=== PATIENT | male | born 2000 | race Caucasian/White ===

== ENCOUNTER 2022-11-04 08:00 | Outpatient (CLI) | payer MEDICAID ==
[2022-11-04 12:46] LABS: BASOPHILS # (AUTO) 0.1 10^3/uL (0.0-0.1); BASOPHILS % (AUTO) 0.6 %; EOSINOPHILS # (AUTO) 0.3 10^3/uL (0.0-0.7); EOSINOPHILS % (AUTO) 3.4 %; HCT - HEMATOCRIT 50.8 % (42.0-52.0); HGB - HEMOGLOBIN 17.3 g/dL (14.0-18.0); LYMPHOCYTES % (AUTO) 23.3 %; MEAN CORPUSCULAR HEMOGLOBIN 28.8 pg (27.0-31.0); MEAN CORPUSCULAR HGB CONC 34.1 g/dL (32.0-36.0); MEAN CORPUSCULAR VOLUME 84.5 fL (80.0-94.0); MEAN PLATELET VOLUME 10.4 fL (7.4-11.4); MONOCYTES # (AUTO) 0.5 10^3/uL (0.0-1.0); MONOCYTES % (AUTO) 5.7 %; NEUTROPHILS # (AUTO) 5.8 10^3/uL (1.5-6.6); NEUTROPHILS % (AUTO) 66.9 %; PLT - PLATELET COUNT 283 10^3/uL (130-450); RED BLOOD COUNT 6.01 10^6/uL (4.70-6.10); RED CELL DISTRIBUTION WIDTH 11.9 % (12.0-15.0); WHITE BLOOD COUNT 8.6 x10^3/uL (4.8-10.8)
[2022-11-04 13:03] LABS: ALBUMIN/GLOBULIN RATIO 1.8 (1.0-2.2); BILIRUBIN,TOTAL 0.8 mg/dL (0.2-1.0); CALCIUM 10.3 mg/dL (8.5-10.3); POTASSIUM 3.5 mmol/L (3.5-5.0); TOTAL PROTEIN 7.8 g/dL (6.7-8.2)
== END 2022-11-04 23:59 | disposition home or self-care (01) ==
LOC: LAB.N 08:00
PROVIDERS: ATTEND Physician Assistant Medical
DX: R53.83 Other fatigue (principal); Z20.822 Contact with and (suspected) exposure to COVID-19
CPT/HCPCS: 36415; 80050

== ENCOUNTER 2022-12-18 12:40 | Emergency (ER) | payer MEDICAID ==
[2022-12-18 12:52] VITALS: BP 143/68
[2022-12-18 13:26] LABS: BASOPHILS # (AUTO) 0.1 10^3/uL (0.0-0.1); BASOPHILS % (AUTO) 0.7 %; EOSINOPHILS # (AUTO) 0.2 10^3/uL (0.0-0.7); HCT - HEMATOCRIT 45.9 % (42.0-52.0); HGB - HEMOGLOBIN 15.6 g/dL (14.0-18.0); LYMPHOCYTES # (AUTO) 2.5 10^3/uL (1.5-3.5); MEAN CORPUSCULAR HEMOGLOBIN 28.9 pg (27.0-31.0); MEAN PLATELET VOLUME 9.6 fL (7.4-11.4); MONOCYTES # (AUTO) 0.5 10^3/uL (0.0-1.0); MONOCYTES % (AUTO) 7.2 %; NEUTROPHILS # (AUTO) 3.7 10^3/uL (1.5-6.6); PLT - PLATELET COUNT 250 10^3/uL (130-450); WHITE BLOOD COUNT 7.1 x10^3/uL (4.8-10.8)
[2022-12-18 13:41] LABS: ALBUMIN 4.8 g/dL (3.2-5.5); ALBUMIN/GLOBULIN RATIO 1.7 (1.0-2.2); BILIRUBIN,TOTAL 0.8 mg/dL (0.2-1.0); CALCIUM 9.5 mg/dL (8.5-10.3); TOTAL PROTEIN 7.6 g/dL (6.7-8.2)
== END 2022-12-18 15:09 | disposition left against medical advice (07) ==
LOC: ED 12:40
DX: Z53.29 Procedure and treatment not carried out because of patient's decision for other reasons (principal); R10.30 Lower abdominal pain, unspecified; R14.0 Abdominal distension (gaseous)
CPT/HCPCS: 36415; 80053; 83690; 85025

== ENCOUNTER 2023-01-12 13:46 | Outpatient (CLI) | payer OTHER, MEDICAID ==
--- NOTE | 2023-01-12 14:14 | XRAY Report ---
PROCEDURE: Knee 3 View LT INDICATIONS: SPRAIN OF LATERAL COLLATERAL LIGAMENT OF LEFT KNEE TECHNIQUE: 3 views of the left knee(s) were acquired. COMPARISON: None. FINDINGS: Bones: No fractures or dislocations. No suspicious bony lesions. Soft tissues: No joint effusion. No suspicious soft tissue calcifications. IMPRESSION: No acute left knee fracture or dislocation. No significant joint effusion. Reviewed by: Fady Hwang MD on 01/12/2023 2:13 PM PST Approved by: Fady Hwang MD on 01/12/2023 2:13 PM PST Station ID: [id number]
== END 2023-01-12 13:47 | disposition home or self-care (01) ==
LOC: DI 13:46
PROVIDERS: ATTEND Registered Nurse
DX: S83.422A Sprain of lateral collateral ligament of left knee, initial encounter (principal)

== ENCOUNTER 2023-03-09 09:46 | Emergency (ER) | payer MEDICAID ==
--- NOTE | 2023-03-09 10:52 | ED Physician Documentation ---
PD HPI CHEST PAIN - Stated complaint Stated Complaint: CHEST PX/COUGH/MALE - Chief complaint Chief Complaint: Cardiac - History obtained from History obtained from: Patient - History of Present Illness Timing - onset: How many months ago (4) Timing - duration: Hours Timing - details: Intermittant (he has had intermittent mid to left sternal area pains when lying down at night. Not bothered by eating. Feels nausea and some dyspnea with the symptoms. Dissipates in several minutes or so.) Review of Systems Constitutional: denies: Fever, Chills Nose: denies: Rhinorrhea / runny nose, Congestion Throat: denies: Sore throat Cardiac: reports: Chest pain / pressure (intermittent as in HPI.). denies: Palpitations, Pedal edema, Calf pain Respiratory: denies: Cough GI: reports: Abdominal Pain, Nausea. denies: Abdominal Swelling, Vomiting, Diarrhea PD PAST MEDICAL HISTORY - Past Medical History Cardiovascular: None Respiratory: None Endocrine/Autoimmune: None GI: None : None HEENT: None Psych: ADD/ADHD Musculoskeletal: None Derm: None - Past Surgical History Past Surgical History: No - Present Medications Home Medications: Ambulatory Orders Medication Instructions Recorded Confirmed Methylphenidate HCl [Concerta] 36 mg PO DAILY 12/31/14 11/28/15 ondansetron HCL [Zofran] 4 mg PO Q6HR PRN #14 tablet 11/28/15 Pantoprazole [Protonix] 40 mg PO DAILY 30 Days #30 tablet 03/09/23 Sucralfate [Carafate] 1 gm PO BID #30 tablet 03/09/23 - Allergies Allergies/Adverse Reactions: Allergies Allergy/AdvReac Type Severity Reaction Status Date / Time No Known Drug Allergies Allergy Verified 03/09/23 09:54 - Social History Does the pt smoke?: No Smoking Status: Never smoker Does the pt drink ETOH?: No Does the pt have substance abuse?: No - Immunizations Immunizations are current?: Yes - POLST Patient has POLST: No PD ED PE NORMAL - Vitals Vital signs reviewed: Yes - General General: Alert and oriented X 3, No acute distress, Well developed/nourished - Neck Neck: Supple, no meningeal sign, No adenopathy - Cardiac Cardiac: RRR, No murmur - Respiratory Respiratory: Clear bilaterally, Other (no chestwall tenderness. ) - Abdomen Abdomen: Normal bowel sounds, Soft, Non distended, No organomegaly, Other (epigastric tender without guarding nor rebound. Not really tender in RUQ. ) Results - Vitals Vitals: Vital Signs - 24 hr 03/09/23 03/09/23 09:50 12:01 Temperature 36.7 C 37.1 C Heart Rate 76 74 Respiratory 16 16 Rate Blood Pressure 145/85 H 135/86 H O2 Saturation 100 100 Oxygen O2 Source Room air - EKG (time done) 09:56 EKG releavant findings:: EKG personally interpreted by author of this note. Relevant findings are: Rate: Rate (enter#) (80) Rhythm: NSR [place]: Normal Intervals: Normal [place] QRS: Normal Ischemia: Normal ST segments. No: ST elevation c/w ischemia, ST depression - Labs Labs: Laboratory Tests 03/09/23 11:32 Sodium 139 Potassium 4.2 Chloride 103 Carbon Dioxide 28 Anion Gap 8.0 BUN 10 Creatinine 1.0 Estimated GFR (MDRD) 93 Glucose 105 H Calcium 10.2 Total Bilirubin 0.3 AST 18 ALT 31 Alkaline Phosphatase 69 Total Protein 8.2 Albumin 4.9 Globulin 3.3 Albumin/Globulin Ratio 1.5 Lipase 29 PD Medical Decision Making - ED course Complexity details: reviewed results (ECG is normal. His symptoms seem epigastric. LFTs and lipase are normal. considered but do not feel needed is abd CT. ), considered differential (I think his symptoms sound like eesophagitis, with reflux as the initiator of it. ), d/w patient Departure - Departure Disposition: 01 Home, Self Care Clinical Impression: Epigastric abdominal pain GERD with esophagitis Qualifiers: Esophagitis bleeding: without hemorrhage Qualified Code(s): K21.00 - Gastro- esophageal reflux disease with esophagitis, without bleeding Condition: Stable Record reviewed to determine appropriate education?: Yes Instructions: ED GERD Prescriptions: Sucralfate [Carafate] 1 gm PO BID #30 tablet Pantoprazole [Protonix] 40 mg PO DAILY 30 Days #30 tablet Comments: Your blood test looking at pancreas liver and basic kidney function electrolytes are normal. This does sound like irritation of the stomach and esophagus from reflux as you were presuming. I would suggest going with some acid reducing medicine such as pantoprazole daily for the next month. To that he can add sucralfate which helps coat the stomach and last a bit longer than regular antacids. 1 or 2 times through the day but particularly do it at night before sleep. Sleep with the head of the bed elevated some. Add Tylenol every 4-6 hours if needed. Minimize alcohol and caffeine. Diminish spicy foods. I would anticipate improvement and resolution of this over the next week or so. Recheck if not better. I sent your prescription to [facility] pharmacy. Forms: Activity restrictions Discharge Date/Time: 03/09/23 12:44
[2023-03-09] MEDS ORDERED: SUCRALFATE 1 GM/10 ML UDC PO STA (11:23)
[2023-03-09] MEDS ORDERED: PANTOPRAZOLE 40 MG TABLET PO STA (11:23)
[2023-03-09] MEDS ORDERED: MAG HYDROX/AL HYDROX/SIMETH 30 ML UDC PO STA (11:24)
[2023-03-09 11:48] LABS: ALBUMIN 4.9 g/dL (3.2-5.5); ALBUMIN/GLOBULIN RATIO 1.5 (1.0-2.2); BILIRUBIN,TOTAL 0.3 mg/dL (0.2-1.0); CALCIUM 10.2 mg/dL (8.5-10.3); POTASSIUM 4.2 mmol/L (3.5-5.0); TOTAL PROTEIN 8.2 g/dL (6.7-8.2)
[2023-03-09 12:01] VITALS: BP 135/86
== END 2023-03-09 12:44 | disposition home or self-care (01) ==
LOC: ED 09:46
DX: K21.00 Gastro-esophageal reflux disease with esophagitis, without bleeding (principal); Z79.899 Other long term (current) drug therapy
CPT/HCPCS: 36415; 80053; 83690; 93005; 99283; 99284; A9270

== ENCOUNTER 2023-04-17 23:09 | Emergency (ER) | payer MEDICAID ==
[2023-04-17] MEDS ORDERED: ONDANSETRON ODT 4 MG TABLET TL STA (23:43)
[2023-04-17] MEDS ORDERED: FAMOTIDINE 20 MG TABLET PO STA (23:43)
--- NOTE | 2023-04-18 00:10 | ED Physician Documentation ---
History of Present Illness - Stated complaint Stated Complaint: ACID REFLUX, BURNING SENSATION - Chief complaint Chief Complaint: Abd Pain - History obtained from History obtained from: Patient - Additonal information Additional information: 22-year-old man with history of acid reflux presents with burning epigastric pain after eating for the past week, worse over the past couple days with associated nonbloody nonbilious nausea and vomiting. Patient states that he went out drinking recently and this may have exacerbated it. Denies fever, diarrhea, lower abdominal pain. denies urinary sx or back pain. PD PAST MEDICAL HISTORY - Past Medical History Past Medical History: Yes Cardiovascular: None Respiratory: None Endocrine/Autoimmune: None GI: None : None HEENT: None Psych: ADD/ADHD Musculoskeletal: None Derm: None - Past Surgical History Past Surgical History: No - Present Medications Home Medications: Ambulatory Orders Medication Instructions Recorded Confirmed Methylphenidate HCl [Concerta] 36 mg PO DAILY 12/31/14 11/28/15 ondansetron HCL [Zofran] 4 mg PO Q6HR PRN #14 tablet 11/28/15 Pantoprazole [Protonix] 40 mg PO DAILY 30 Days #30 tablet 03/09/23 Sucralfate [Carafate] 1 gm PO BID #30 tablet 03/09/23 Famotidine [Pepcid] 20 mg PO BID PRN #30 tablet 04/18/23 Ondansetron Odt [Zofran Odt] 4 mg TL Q6H PRN #10 tablet 04/18/23 - Allergies Allergies/Adverse Reactions: Allergies Allergy/AdvReac Type Severity Reaction Status Date / Time No Known Drug Allergies Allergy Verified 04/17/23 23:29 - Social History Does the pt smoke?: No Smoking Status: Never smoker Does the pt drink ETOH?: No Does the pt have substance abuse?: No - Immunizations Immunizations are current?: Yes - POLST Patient has POLST: No PD ED PE NORMAL - Vitals Vital signs reviewed: Yes - General General: Alert and oriented X 3, No acute distress, Well developed/nourished - HEENT HEENT: Atraumatic, PERRL, EOMI - Neck Neck: Supple, no meningeal sign - Cardiac Cardiac: RRR - Respiratory Respiratory: No respiratory distress, Clear bilaterally - Abdomen Abdomen: Non tender, Non distended Results - Vitals Vitals: Vital Signs - 24 hr 04/17/23 23:21 Temperature 36.3 C L Heart Rate 100 Respiratory 17 Rate Blood Pressure 133/84 H O2 Saturation 98 Oxygen O2 Source Room air - EKG (time done) 9863 EKG releavant findings:: EKG personally interpreted by author of this note. Relevant findings are: Rate: Rate (enter#) (80) Rhythm: NSR [place]: Normal Intervals: Normal [place] QRS: Normal Ischemia: Normal ST segments PD Medical Decision Making - ED course ED course: 22-year-old man presents with acid reflux pain, improving after Zofran and Pepcid. Patient tolerating p.o. water and crackers. Return precautions given. Rx sent to pharmacy for Pepcid and Zofran. Plan to follow-up with a primary care provider. Departure - Departure Disposition: 01 Home, Self Care Clinical Impression: Acid reflux Condition: Good Instructions: Famotidine Follow-Up: Floridalma Barr PA-C [Provider Admit Priv/Credential] - Prescriptions: Famotidine [Pepcid] 20 mg PO BID PRN #30 tablet PRN Reason: Pain 1-4 Ondansetron Odt [Zofran Odt] 4 mg TL Q6H PRN #10 tablet PRN Reason: Nausea / Vomiting Comments: You are seen in the emergency department for a burning stomach. We provided Pepcid and Zofran which was sent to your pharmacy electronically ([facility]). Please follow-up with a primary care provider (referral provided). Return to the emergency department if you have any concerns.
[2023-04-18 00:21] VITALS: BP 132/81
== END 2023-04-18 00:21 | disposition home or self-care (01) ==
LOC: ED 23:09
DX: K21.9 Gastro-esophageal reflux disease without esophagitis (principal)
CPT/HCPCS: 93005; 99284; A9270; Q0162